=== PATIENT | female | born 1960 ===

== ENCOUNTER 2025-01-15 06:20 | Day surgery (SDC) | payer MEDICARE, OTHER, SELFPAY ==
[2025-01-15 07:06] LABS: Glucose - Point of Care 91 mg/dl (70-99)
== END 2025-01-15 08:44 | disposition home or self-care (01) ==
LOC: GI 06:20
PROVIDERS: ATTENDING PHYSICIAN Internal Medicine Gastroenterology
DX: Z12.11 Encounter for screening for malignant neoplasm of colon (principal); Z53.09 Procedure and treatment not carried out because of other contraindication
CPT/HCPCS: G0121; 82962

== ENCOUNTER 2025-01-16 06:18 | Day surgery (SDC) | payer MEDICARE, OTHER, SELFPAY ==
[2025-01-16 14:10] LABS: Glucose - Point of Care 72 mg/dl (70-99)
== END 2025-01-16 15:28 | disposition home or self-care (01) ==
LOC: GI 06:18
PROVIDERS: ATTENDING PHYSICIAN Internal Medicine
DX: Z12.11 Encounter for screening for malignant neoplasm of colon (principal); Q43.8 Other specified congenital malformations of intestine; K63.89 Other specified diseases of intestine; K51.40 Inflammatory polyps of colon without complications
CPT/HCPCS: 45385; 82962; 88305